=== PATIENT | female | born 1930 | race Caucasian/White ===

== ENCOUNTER → 2017-07-31 | Outpatient (CLI) | payer OTHER ==
[~2017-07-31] MED LIST: ALBUTEROL SULFAT4 MG; AMARYL2 MG; ASPIR 8181 MG PO; CENTRUM SILVER1 EAC4 PO; CRANBERRY200 MG PO; DOXEPIN 50MG CA50 M1; GLUCOPHAGE500 MG; HYDROXYZINE HCL25 M1 PO; LISINOPRIL2.5 MG; LORATIDINE 10 M10 M1 PO; LUTEIN 15 MG S1 EACH PO; NEURONTIN600 MG; NORCO 5-325 TA1 EAC1 PO; OMEGA-31000 M1 PO; PLAVIX 75 MG TA75 M1; SIMVASTATIN40 MG; TRIAMCINOLONE A80 G2 TOP; ZOFRAN ODT4 MG PO
== END ==
LOC: M.RAD 10:10
DX: Z12.31 Encounter for screening mammogram for malignant neoplasm of breast (principal)

== ENCOUNTER 2018-09-12 23:23 | Emergency (ER) | payer OTHER ==
[~2018-09-12] VITALS: Ht 157.5 cm; Wt 76.2 kg
[2018-09-12 23:46] LABS: ABSOLUTE BASOPHILS 0.1 thou/uL (0.0-0.2); ABSOLUTE EOSINOPHILS 0.2 thou/uL (0.0-0.7); ABSOLUTE LYMPHOCYTES 2.2 thou/uL (0.8-5.3); ABSOLUTE MONOCYTES 0.7 thou/uL (0.0-1.2); ABSOLUTE NEUTROPHILS 5.7 thou/uL (1.6-8.1); BASOPHILS 0.9 %; HEMOGLOBIN 12.8 gm/dL (12.0-15.0); MCH 30.8 pg (26.0-34.0); MCHC 33.7 g/dL (28.0-37.0); MCV 91.6 fL (80.0-100.0); MONOCYTES 7.5 %; MPV 8.7 fl. (7.2-11.1); NUCLEATED RBCS 0 /100WBC; PLATELET COUNT* 244 thou/uL (150-400); POLYS 64.6 %; RBC 4.15 mil/uL (4.20-5.00); RDW-CV 12.7 % (10.5-14.5); WBC 8.9 thou/uL (4.0-11.0)
[2018-09-12 23:51] LABS: ANION GAP 9 mmol/L (7-16); BUN 29 mg/dL (7-18); CALCIUM 9.8 mg/dL (8.5-10.1); CHLORIDE 101 mmol/L (98-107); CO2 29 mmol/L (21-32); CREATININE 0.8 mg/dL (0.6-1.3); GLUCOSE 151 mg/dL (70-99); SODIUM 139 mmol/L (136-145)
[2018-09-13] LABS: PROTIME 10.5 Seconds (9.20-11.50)
[2018-09-13 00:03] LABS: ALBUMIN 3.9 g/dL (3.4-5.0); ALKALINE PHOSPHATASE 44 U/L (46-116); NT-PRO BRAIN NAT PEPTIDE 270 pg/mL (<300); SGOT 15 U/L (15-37); SGPT 26 U/L (30-65); TOTAL BILIRUBIN 0.2 mg/dL (<0.1-1.0); TOTAL PROTEIN 7.7 g/dL (6.4-8.2); TROPONIN-I LEVEL <0.06 ng/mL (<0.06)
[2018-09-13 01:28] LABS: URINE BILIRUBIN NEGATIVE (Negative); URINE BLOOD NEGATIVE (Negative); URINE CLARITY CLEAR; URINE COLOR YELLOW; URINE GLUCOSE-RANDOM NEGATIVE (Negative); URINE KETONES TRACE (Negative); URINE LEUKOCYTES-REFLEX NEGATIVE (Negative); URINE NITRITE-REFLEX NEGATIVE (Negative); URINE PROTEIN 2+ (Negative); URINE SPECIFIC GRAVITY >= 1.030 (1.005-1.030); URINE UROBILINOGEN 0.2 E.U./dl (0.2-1.0)
[2018-09-13 01:35] LABS: CASTS None Seen /LPF (None Seen); SQUAMOUS 0-3 Few /LPF (0-3)
[2018-09-13 01:36] LABS: BACTERIA-REFLEX 1-9 Few /HPF (None Seen); CRYSTALS None Seen /LPF (None Seen); URINE RBC None Seen /HPF (0-2); URINE WBC-REFLEX 0-5 Rare /HPF (0-5)
[2018-09-13 06:23] VITALS: BP 174/62
--- NOTE | 2018-09-13 11:37 | EKG ---
[place] [address] ELECTROCARDIOGRAM REPORT Name: LATHA BAILEY Room: [facility] Scottie#: [id number] Admission: 09/12/18 Attend Phys: Discharge: 09/13/18 Date of : 30 Report #: [id number] THIS REPORT FOR: //name// [facility] ED Test Date: 2018-09-12 Test Time: 23:33:05 Pat Name: LATHA BAILEY Department: Room: Gender: F Manager Insurance: [place] : [id number] Requested By: Lilian Johnson Order Number: [id number] MD: Karthikeyan Gan Measurements Intervals [place] Rate: 77 P: 63 VT: 189 QRS: 8 QRSD: 87 T: 62 QT: 417 QTc: 472 Interpretive Statements Sinus rhythm Ventricular premature complex Left atrial enlargement Baseline wander in lead(s) II,III,aVF No previous ECG available for comparison Electronically Signed On 09-13-2018 11:37:09 CDT by Karthikeyan Gan [email or web address] <ELECTRONICALLY SIGNED> By: Karthikeyan Gan MD, [facility] 09/13/18 [id number] Karthikeyan Gan MD, [facility] /EPI
== END 2018-09-13 06:25 | disposition home or self-care (01) ==
LOC: M.ERS 23:23
PROVIDERS: Emergency Medicine
DX: I10 Essential (primary) hypertension (principal); R42 Dizziness and giddiness; J44.9 Chronic obstructive pulmonary disease, unspecified; F41.9 Anxiety disorder, unspecified; E78.00 Pure hypercholesterolemia, unspecified; E11.40 Type 2 diabetes mellitus with diabetic neuropathy, unspecified; Z85.828 Personal history of other malignant neoplasm of skin; Z86.73 Personal history of transient ischemic attack (TIA), and cerebral infarction without residual deficits; Z85.3 Personal history of malignant neoplasm of breast; Z90.11 Acquired absence of right breast and nipple